=== PATIENT | female | born 2000 | race Caucasian/White ===

== ENCOUNTER 2018-12-07 21:15 | Emergency (ER) | payer SELFPAY ==
--- NOTE | 2018-12-07 21:31 | EDPHY ---
H & P Time Seen by Provider: 12/07/18 21:27 HPI/ROS: CHIEF COMPLAINT: Right middle digit laceration HISTORY OF PRESENT ILLNESS: 18-year-old [id number] female with up-to- date tetanus sustained accidental laceration to her right middle digit dorsal aspect PIP joint. Tetanus up-to-date PHYSICAL EXAM (Prior to examination, patient consented to physical exam, hands were washed and my usual and customary physical exam procedures followed) 1) GENERAL: Well-developed, well-nourished, alert and oriented. Appears to be in no acute distress. 2) HEAD: Normocephalic 3) HEENT: sclera anicteric 4) LUNGS: Breathing comfortably. 5) SKIN: Right middle digit dorsal aspect PIP 1 cm laceration linear well- demarcated which appears to possibly involve the joint capsule. 6) MUSCULOSKELETAL: Extension flexion against resistance are intact 7) NEUROLOGIC: Full sensation two-point discrimination intact Smoking Status: Never smoked Constitutional: Initial Vital Signs Temperature (C) 37.1 C 12/07/18 21:17 Heart Rate 98 12/07/18 21:17 Respiratory Rate 16 12/07/18 21:17 Blood Pressure 133/90 H 12/07/18 21:17 O2 Sat (%) 97 12/07/18 21:17 O2 Delivery Mode Room Air Allergies/Adverse Reactions: No Known Allergies Allergy (Unverified 12/07/18 21:19) Home Medications: Medication Instructions Recorded Cephalexin [Keflex] 500 mg PO TID 5 Days cap 12/07/18 Prozac 10 MG (*) 12/07/18 Sprintec 28 Day Tablet 12/07/18 MDM/Departure - MDM Imaging Results: Imaging Impressions Finger X-Ray 12/07/18 21:57 Impression: Negative for fracture or radiopaque foreign body. Images reviewed myself Procedures: Procedure: Laceration repair. I explained the indications, risks and benefits for both laceration repair and anesthetic administration. Verbal consent was obtained from the patient. The laceration on the right middle digit was anesthetized using 0.5% bupivicaine without epinephrine. After anesthetic administered the patient was observed for a period of time and had no apparent adverse effects. The wound was cleaned, prepped, draped in normal sterile fashion and explored to its base. No foreign body seen, no foreign bodies palpated. There were no deep structures involved. The wound was repaired with 3 simple interrupted 5 O Ethilon sutures. The wound repair was simple. The procedure was performed by myself. Patient has been informed that scarring will occur, although efforts have been made to minimize this. Procedure: Splint A aluminum foam finger splint was applied by ER lawn and garden technician. After application of the splint I returned and re-examined the patient. The splint was adequately immobilizing the joint and distal to the splint the patient's circulation and sensation were intact. Patient shows no signs of compartment syndrome. Was given orthopedic precautions. Medications Given: Discontinued Medications Cephalexin HCl (Keflex) 500 mg PO EDNOW ONE PRN Reason: Protocol Stop: 12/07/18 21:59 Last Admin: 12/07/18 22:16 Dose: 500 mg ED Course/Re-evaluation: Patient has been informed that traumatic arthrotomy of the PIP joint of the right middle digit is not fully ruled out. X-ray performed shows no definitive intra-articular air and no radiopaque foreign body. I am starting the patient on prophylactic antibiotics recommended follow-up with Hand surgery on-call Dr. Clifford Coelho in the next 2 days. Sutures to be removed in 10 days. My usual customary wound precautions instructions provided. Care of patient under supervision of secondary supervising physician Dr Isis Anderson . - Depart Disposition: Home, Routine, Self-Care Clinical Impression: Finger laceration Qualifiers: Encounter type: initial encounter Finger: middle finger Damage to nail status: without damage Foreign body presence: without foreign body Laterality: right Qualified Code(s): S61.212A - Laceration without foreign body of right middle finger without damage to nail, initial encounter Condition: Good Instructions: Care For Your Stitches (ED), Laceration (ED) Prescriptions: Cephalexin [Keflex] 500 mg PO TID 5 Days cap Referrals: NONE *PRIMARY CARE P,. [Primary Care Provider] - As per Instructions
[2018-12-07] MEDS ORDERED: CEPHALEXIN 500 MG CAP PO ONE (21:58)
[2018-12-07 23:02] VITALS: BP 127/63
== END 2018-12-07 23:00 | disposition home or self-care (01) ==
PROC: 0HQFXZZ Repair Right Hand Skin, External Approach (ICD-10-PCS; principal; 2018-12-07)
DX: S61.212A Laceration without foreign body of right middle finger without damage to nail, initial encounter (principal); W26.9XXA Contact with unspecified sharp object(s), initial encounter; Y92.9 Unspecified place or not applicable; Y93.9 Activity, unspecified; Y99.9 Unspecified external cause status
CPT/HCPCS: L3925